=== PATIENT | female | born 1930 | race Caucasian/White ===

== ENCOUNTER 2017-06-22 12:10 | Inpatient (IN) | payer MEDICARE ==
[2017-06-22] MEDS ORDERED: Nitroglycerin 2% Ointment 1 INCH/1 GM Packet ONE (12:31)
[2017-06-22 12:58] LABS: #Basophils 0.1 thou/uL (0.0-0.2); #Eosinphils 0.5 thou/uL (0.0-0.7); #Lymphocytes 2.9 thou/uL (1.20-3.40); #Monocytes 0.8 thou/uL (0.11-0.59); #Neutrophils 7.4 thou/uL (1.40-6.50); %Basophils 0.5 % (0.0-1.0); %Eosinophils 4.5 % (0.0-10.0); %Lymphocytes 24.8 % (21.0-51.0); %Monocytes 6.8 % (0.0-10.0); %Neutrophils 63.4 % (42.0-75.0); Hemoglobin 11.4 g/dL (12.0-16.0); Mean Corpuscular HGB CONC 32.7 g/dL (32.0-36.0); Mean Corpuscular Hemoglobin 29.4 pg (27.0-31.0); Mean Corpuscular Volume 89.7 fl (81.0-99.0); Mean Platelet Volume 8.2 fL (7.4-10.4); Platelet Count 251 thou/uL (130-400); RBC Distribution Width 13.6 % (11.5-14.5); Red Blood Cell (RBC) Count 3.88 mill/uL (4.20-5.40); White Blood Cell (WBC) Count 11.6 thou/uL (4.8-10.8)
--- NOTE | 2017-06-22 13:08 | RAD ---
CHEST ONE VIEW: History: Chest pain. Comparison: 11-07-16 FINDINGS: Lungs are without focal airspace consolidation, pneumothorax, or effusion. Scarring in the right uppe r lobe. Cardiac silhouette and mediastinal contours are similar. No acute osseous abnormality. Multiple media n sternotomy wires. IMPRESSION: No acute intrathoracic abnormality. POS: [facility]
[2017-06-22 13:25] LABS: ALT (SGPT) 9 U/L (8-55); AST (SGOT) 15 U/L (5-34); Albumin 3.7 g/dL (3.4-4.8); Alkaline Phosphatase 73 U/L (40-150); Anion Gap 15 mmol/L (10-20); BUN (Urea Nitrogen) 19 mg/dL (9.8-20.1); Bilirubin, Total 0.3 mg/dL (0.2-1.2); CK (CPK) 25 U/L (29-168); Calc. Creatinine Clearance 0 mL/min (70-130); Calcium 9.8 mg/dL (7.8-10.44); Carbon Dioxide 21 mmol/L (23-31); Chloride 91 mmol/L (98-107); Estimated GFR-MDRD 40; Globulin 3.2 g/dL (2.4-3.5); Glucose 136 mg/dL (83-110); Lipase 47 U/L (8-78); Protein, Total 6.9 g/dL (6.0-8.3); Sodium 122 mmol/L (136-145)
[2017-06-22 13:28] LABS: CKMB 1.2 ng/mL (0-6.6); Troponin I 0.028 ng/mL (< 0.028)
[2017-06-22] MEDS ORDERED: Aspirin 325 MG TAB PO SCH (19:00)
[2017-06-22] MEDS ORDERED: Ondansetron ODT 4 MG TAB PO PRN (19:07)
[2017-06-22] MEDS ORDERED: Bisacodyl 5 MG TAB PO PRN (19:07)
[2017-06-22] MEDS ORDERED: Acetaminophen 650 MG Suppository PR PRN (19:07)
[2017-06-22] MEDS ORDERED: Ondansetron HCl/PF 4 MG/2 ML Vial IVP PRN (19:07)
[2017-06-22] MEDS ORDERED: Acetaminophen 325 MG TAB PO PRN (19:07)
[2017-06-22] MEDS ORDERED: Famotidine 20 MG TAB PO SCH (21:00)
[2017-06-22 21:47] VITALS: BMI 20.4
[2017-06-22] MEDS: Docusate 100 MG CAP PO SCH (21:50)
[2017-06-22] MEDS: Heparin 5,000 UNITS/ML VIAL SC SCH (21:51)
[2017-06-22 23:22] LABS: Bilirubin Negative (Negative); Blood, Urine Small (Negative); Clarity CLOUDY (Clear); Glucose, Urine (Dipstick) Negative (Negative); Leukocyte Large (Negative); Nitrite Negative (Negative); Osmolality, Urine 192 mOsm/kg (300-900); Protein, Urine (Dipstick) 30 mg/dL (Neg-Trace); Specific Gravity, Urine 1.006 (1.002-1.036); Urobilinogen 0.2 mg/dL (0.2-1.0); pH, Urine 7.5 (5.0-9.0)
[2017-06-22 23:24] LABS: Bacteria/HPF 1+ HPF (None Seen); Pathc Cast-AUWi Flag 1.21 (0-2.49); Squamous Epithelial None Seen HPF (0-3)
[2017-06-22 23:35] LABS: Hyaline Casts/LPF 0-3 HYALINE CAST LPF (0-3 Hyaline); RBC/HPF 0-3 HPF (0-3)
[2017-06-22 23:38] LABS: Sodium, Urine 41 mmol/L (Not Available)
[2017-06-22] MEDS ORDERED: Nitroglycerin 2% Ointment 1 INCH/1 GM Packet TOP SCH (23:59)
[2017-06-23 05:49] LABS: #Basophils 0.1 thou/uL (0.0-0.2); #Eosinphils 0.6 thou/uL (0.0-0.7); #Lymphocytes 3.3 thou/uL (1.20-3.40); #Neutrophils 6.4 thou/uL (1.40-6.50); %Basophils 1.1 % (0.0-1.0); %Eosinophils 5.4 % (0.0-10.0); %Lymphocytes 28.8 % (21.0-51.0); %Monocytes 8.4 % (0.0-10.0); %Neutrophils 56.3 % (42.0-75.0); Hemoglobin 10.8 g/dL (12.0-16.0); Mean Corpuscular HGB CONC 32.5 g/dL (32.0-36.0); Mean Corpuscular Hemoglobin 29.2 pg (27.0-31.0); Mean Corpuscular Volume 89.9 fl (81.0-99.0); Mean Platelet Volume 8.5 fL (7.4-10.4); Platelet Count 235 thou/uL (130-400); RBC Distribution Width 13.8 % (11.5-14.5); Red Blood Cell (RBC) Count 3.69 mill/uL (4.20-5.40); White Blood Cell (WBC) Count 11.4 thou/uL (4.8-10.8)
--- NOTE | 2017-06-23 05:50 | HP ---
PRIMARY CARE PHYSICIAN: Benitez Chaudhari MD CHIEF COMPLAINT: Chest pain and weakness. HISTORY OF PRESENT ILLNESS: This is an 87-year-old white female with a recent history in the last fe w months of a fracture of her right femur with a oseas placed in outside hospital. She has had some we akness ever since then and according to her sister seemed to be little confused on and off for quite a few months, but worsening since medications were changed during her last hospitalization. The can ent was able to ambulate well after the fracture. Then, about 3 days prior to admission, the patient became increasingly weak, worsened significantly on the day of admission, almost fell twice with her caregiver. She felt dizzy and complaining of some back pain, and then she had acute onset of left-s ided chest pain, which prompted her going to the emergency room. The patient has a known history of coronary artery disease and a previous CABG 1 year ago. She was given baby aspirin at home and then 324 mg of aspirin by EMS and sublingual nitroglycerin x1. She had some confusion at home, but that r esolved in the emergency room and her chest pain resolved as well. Still feeling weak. PAST MEDICAL HISTORY: The patient does not remember all of her past medical history and her sister jose allred is present does not know it either. Most of her past medical history was taken from the chart, sp ecifically Dr. Chaudhari's H&P from November of this year. 1. Diabetes mellitus type 2. 2. Hypertension. 3. Hypercholesterolemia. 4. Hypothyroidism. 5. Lumbar spinal stenosis. 6. Osteoarthritis. 7. Tuberculosis as a child. PAST SURGICAL HISTORY: 1. Tonsillectomy and adenoidectomy in 1934. 2. Cholecystectomy in 1983. 3. Breast biopsy x3. 4. Back surgery in 1993. 5. D&C in 2000. 6. Laparoscopic-assisted total vaginal hysterectomy and bilateral salpingo-oophorectomy in 2000. 7. Decompressive laminectomy at L2-L3 with microdiskectomy in 2007. 8. Bilateral cataract removal in 2008. 9. CABG in 2015. 10. Oseas placement in right femur in 2018. ALLERGIES: 1. STATINS. 2. TRICOR. 3. CODEINE AND PHOSPHATE. 4. SULFA. CURRENT MEDICATIONS: The patient does not remember her current medications. The sister said that th e EMS took pictures of all of them before bringing them to the hospital. Going off the ER notes, the patient is currently on, 1. Levothyroxine 75 mcg daily. 2. Carvedilol 6.25 mg twice a day. 3. Metformin 500 mg, 2 times a day. 4. Atorvastatin 10 mg daily. 5. Protonix 40 mg daily. 6. Oxybutynin extended release 10 mg daily. 7. Nitrostat 0.4 mg as needed for chest pain. FAMILY HISTORY: Father of kidney disease. Mother from a fall. The patient has some sibli ngs with heart disease. SOCIAL HISTORY: The patient is and lives with her and a live-in ruby on rails engineer. No histo ry of tobacco, alcohol, or illicit drug use. REVIEW OF SYSTEMS: Limited by the patient's mild confusion. Constitutional: No fevers or chills. She has had some weight loss per the sister due to her eating less ever since she had broken her femu r. Eyes: No double vision or blurred vision. ENT: No congestion, drainage or sore throat. Cardio vascular: See HPI. Pulmonary: No coughing, wheezing, or shortness of breath. Gastrointestinal: N o nausea or vomiting. No abdominal pain. She has had some diarrhea per the sister. Genitourinary: No hematuria. The patient reports that it is uncomfortable when she pees ever since she has had to wear a diaper, but no significant changes recently. Musculoskeletal: See HPI. Back pain only. Ski n: No rashes or other lesions she has noted. Neurologic: No numbness, tingling, or focal weakness. PHYSICAL EXAMINATION: VITAL SIGNS: Blood pressure 162/77, pulse 69, respirations 18, O2 sat 94% on room air, temperature 9 8.1. GENERAL: This is a well-developed, well-nourished white female in no apparent distress. HEENT: Eyes, pupils equal, round, and reactive to light. Oropharynx, dry without erythema or exudat e. NECK: Supple. No lymphadenopathy. No thyroid nodules or enlargement. No JVD. HEART: Regular rate and rhythm. No murmurs, rubs, or gallops. LUNGS: Clear to auscultation bilaterally. No wheezes, crackles, or rhonchi. ABDOMEN: Soft, nontender to palpation. Normoactive bowel sounds. No hepatosplenomegaly or other ma sses. EXTREMITIES: No clubbing, cyanosis, or edema. SKIN: No rashes or other lesions noted. NEUROLOGIC: She has intact strength in all extremities and no facial droop. PSYCHIATRIC: The patient is alert. She is oriented to person. She cannot remember the year and she does not know, which hospital she is in, though she does know she is in the hospital and that she ca me here because of chest pain. Her sister reports that the patient typically had normal mental statu s until about the last 6-8 months. She does not know of any sort of diagnosis of dementia, but the p nuvia's mental status has fluctuated since then and sister is convinced this is due to medications. She has a normal affect and no anxiety or depression currently. LABORATORY DATA: White blood cell count of 11.6 with a normal differential, hemoglobin 11.4. Comple te metabolic panel was notable for a sodium of 122, it has never been this low before, usually in the mid to low 130s. In 2016, it did get as low as 126 at one time during her hospitalization for her C ABG, but never below that. Chloride 91, bicarbonate 21. Creatinine is 1.26, which is similar to the previous labs, easily fluctuates between 0.9 and 1.3. Glucose of 136, creatinine kinase 25. The re st of the complete metabolic panel was normal. Cardiac marker set is negative x1. EKG: I did review the EKG done in the emergency room. It does show sinus bradycardia at 58 beats pe r minute with some nonspecific changes, but no evidence of ST elevation or acute ischemic changes. C hest x-ray: I did review the chest x-ray done in the emergency room along with the radiologist's rep ort. It does show no evidence of infiltrate or cardiomegaly, no pulmonary edema, no acute cardiopulm onary process visualized. ASSESSMENT: 1. Chest pain. The patient has a known history of coronary artery disease. Her cardiac marker sets and EKG looks okay at this time. We will go ahead and trend her cardiac markers and consult Cardiol ogy to evaluate her. 2. Hyponatremia. This is likely the source of her fatigue and decreased physical status over the st few days. It may be secondary to patient's decreased food intake with continuing to drink plenty of fluids. We will restrict the patient's free water at this time, but we will not restrict her salt intake and see if the sodium turns around and her physical status improves. We will go ahead and hook ve physical therapy and occupational therapy evaluate her in the hospital. She also has had some pro blems with dysphagia in the past, has previously been on mechanical soft with plenty of gravy and no straws. We will have speech therapy evaluate her while she is in the hospital as well. 3. Alternating level of consciousness. This is fairly chronic now over many months, possibly relate d to patient's medications. Although, there is a possibility of some progressive onset of dementia t hat the sister is trying to explain away with her medication. She does not seem to be on any medicat ions that would cause significant mental status changes at this time. 4. Gastrointestinal prophylaxis. Put the patient on Pepcid in the hospital. 5. Deep venous thrombosis prophylaxis. Put the patient on heparin due to her renal insufficiency. 6. Chronic renal insufficiency. The patient appears the upper limits of her baseline. We will dimitrios tor closely. 7. CODE STATUS: The patient is unable to have a discussion about code status at this time due to he r confusion and sister is not her medical power of workers compensation defense attorney. At this time, she will continue to be F ULL CODE. We will have to re-discuss this in the future with her if he is mentally competent or with her children.
[2017-06-23 06:21] LABS: Anion Gap 12 mmol/L (10-20); BUN (Urea Nitrogen) 18 mg/dL (9.8-20.1); Calc. Creatinine Clearance 25 mL/min (70-130); Calcium 9.7 mg/dL (7.8-10.44); Carbon Dioxide 26 mmol/L (23-31); Chloride 94 mmol/L (98-107); Estimated GFR-MDRD 43; Glucose 82 mg/dL (83-110); Potassium 4.1 mmol/L (3.5-5.1); Sodium 128 mmol/L (136-145)
--- NOTE | 2017-06-23 07:44 | PDOC.PN ---
- Subjective Encounter Start Date: 06/23/17 Encounter Start Time: 07:50 Subjective: No more chest pain. Patient was reportedly confused and didn't know who -: sister was for days until arrived at ER but back to normal. No further -: chest pain. - Objective Resuscitation Status: Resuscitation Status FULL:Full Resuscitation MAR Reviewed: Yes Vital Signs & Weight: Vital Signs (12 hours) Temp Pulse Resp BP Pulse Ox 06/23/17 04:00 97.7 F 59 L 18 160/69 H 94 L 06/23/17 00:32 138/64 06/22/17 20:05 97.7 F 65 18 173/76 H 95 Weight Weight 107 lb 1.6 oz I&O: 06/22/17 06/23/17 06/24/17 06:59 06:59 06:59 Intake Total 150 Output Total 200 Balance -50 Result Diagrams: 06/23/17 04:35 06/23/17 04:35 Phys Exam - Physical Examination Constitutional: NAD HEENT: moist MMs Respiratory: no wheezing, no rales, no rhonchi Cardiovascular: RRR, no significant murmur Gastrointestinal: soft, positive bowel sounds Neurological: non-focal, moves all 4 limbs Psychiatric: normal affect Dx/Plan (1) Hyponatremia Code(s): E87.1 - HYPO-OSMOLALITY AND HYPONATREMIA Status: Acute Comment: improving with fluid restriction (2) Chest pain Code(s): R07.9 - CHEST PAIN, UNSPECIFIED Status: Resolved Comment: cardiology consulted, only one CM ordered in ER and neg, will recheck this AM (3) Encephalopathy Code(s): G93.40 - ENCEPHALOPATHY, UNSPECIFIED Status: Acute Comment: Suspect patient may be having onset of dementia. No new medications on her list that commonly cause confusion. - Plan cont current plan of care, PT/OT * . - Discharge Day Encounter end time: 08:20
[2017-06-23 08:55] LABS: CKMB 1.3 ng/mL (0-6.6); Troponin I 0.031 ng/mL (< 0.028)
[2017-06-23] MEDS: Levothyroxine Sodium 75 MCG TAB PO SCH (09:53)
[2017-06-23] MEDS: Heparin 5,000 UNITS/ML VIAL SC SCH ×3 (10:03→21:04)
[2017-06-23] MEDS: Docusate 100 MG CAP PO SCH ×2 (10:03→21:04)
--- NOTE | 2017-06-23 20:07 | CON ---
DATE OF CONSULTATION: 06/23/2017 REASON FOR CONSULTATION: Chest pain. PRIMARY CATHETER FINISHER AND INSPECTOR: Dr. Michael Torres. HISTORY OF PRESENT ILLNESS: Ms. Polo is a very pleasant 87-year-old woman who recently presented wi th chest pain. During my visit with Ms. Polo, she does seem somewhat confused. She did not remembe r having chest pain, although after being reminded by her granddaughter does admit to having a pain. Her symptoms are vague. She cannot quantify the intensity, severity, or duration. She does have a history of CAD status post bypass surgery in the past. PAST MEDICAL HISTORY: Diabetes mellitus, hypertension, hyperlipidemia, CAD status post bypass surger y, spinal stenosis, osteoarthritis. PAST SURGICAL HISTORY: Tonsillectomy, cholecystectomy, breast biopsy, back surgery, laminectomy, cat aract removal. ALLERGIES: STATIN THERAPY, TRICOR, CODEINE, SULFA. HOME MEDICATIONS: Include levothyroxine, carvedilol, metformin, atorvastatin and Protonix. FAMILY HISTORY: Negative for CAD. SOCIAL HISTORY: No current tobacco or alcohol use. REVIEW OF SYSTEMS: Ten point review of systems reviewed and as above, otherwise negative. PHYSICAL EXAMINATION: GENERAL: She is confused. VITAL SIGNS: Blood pressure 192/84, pulse 74, temperature 98. NEUROLOGIC: The patient is alert and oriented times 3 with no focal neurologic deficits. HEENT: Sclerae without icterus. Mouth has moist mucous membranes with normal pallor. NECK: No JVD. Carotid upstroke brisk. No bruits bilaterally. LUNGS: Clear to auscultation with unlabored respirations. BACK: No scoliosis or kyphosis. CARDIAC: Regular rate and rhythm with normal S1 and S2. No S3 or S4 noted. No significant rubs, mu rmurs, thrills, or gallops noted throughout the precordium. PMI is not displaced. There is no anastasiya ternal heave. ABDOMEN: Soft, nontender, nondistended. No peritoneal signs present. No hepatosplenomegaly. No ab normal striae. EXTREMITIES: 2+ femoral and 2+ dorsalis pedis pulses. No cyanosis, clubbing, or edema. SKIN: No gross abnormalities. PERTINENT LABORATORY DATA: Hemoglobin 10.8, creatinine 1.19 with a GFR of 43. Peak troponin is 0.03 1. IMPRESSION: 1. Chest pain. 2. Coronary artery disease. 3. Status post bypass surgery. RECOMMENDATIONS: 1. Continue aspirin in addition to atorvastatin. 2. Add Norvasc 5 mg 1 p.o. now. 3. Add Coreg 3.125 mg p.o. b.i.d. 4. P.r.n. clonidine. 5. I did discuss conservative versus aggressive approach with Ms. Polo as well as her granddaughter . The granddaughter does agree to a more conservative approach including medical therapy. Further r ecommendations for Dr. Michael Torres in a.m.
[2017-06-23] MEDS: Amlodipine 5 MG TAB PO SCH (20:59)
[2017-06-23] MEDS: Carvedilol 6.25 MG TAB PO SCH (21:00)
[2017-06-23] MEDS: Atorvastatin Calcium 10 MG TAB PO SCH (21:04)
[2017-06-23] MEDS: Oxybutynin ER 5 MG TAB PO SCH (21:05)
[2017-06-24 05:24] LABS: #Basophils 0.1 thou/uL (0.0-0.2); #Eosinphils 0.6 thou/uL (0.0-0.7); #Lymphocytes 3.4 thou/uL (1.20-3.40); #Monocytes 0.8 thou/uL (0.11-0.59); #Neutrophils 5.7 thou/uL (1.40-6.50); %Eosinophils 5.3 % (0.0-10.0); %Lymphocytes 32.1 % (21.0-51.0); %Monocytes 7.4 % (0.0-10.0); %Neutrophils 54.1 % (42.0-75.0); Hemoglobin 11.2 g/dL (12.0-16.0); Mean Corpuscular HGB CONC 32.5 g/dL (32.0-36.0); Mean Corpuscular Volume 89.4 fl (81.0-99.0); Mean Platelet Volume 8.1 fL (7.4-10.4); Platelet Count 261 thou/uL (130-400); RBC Distribution Width 13.7 % (11.5-14.5); Red Blood Cell (RBC) Count 3.84 mill/uL (4.20-5.40); White Blood Cell (WBC) Count 10.5 thou/uL (4.8-10.8)
[2017-06-24 05:51] LABS: Anion Gap 10 mmol/L (10-20); BUN (Urea Nitrogen) 17 mg/dL (9.8-20.1); Calc. Creatinine Clearance 24 mL/min (70-130); Calcium 9.8 mg/dL (7.8-10.44); Carbon Dioxide 27 mmol/L (23-31); Chloride 95 mmol/L (98-107); Estimated GFR-MDRD 39; Glucose 109 mg/dL (83-110); Sodium 128 mmol/L (136-145)
[2017-06-24] MEDS ORDERED: FLU VACC TS2017-18 (>65YR) 0.5 ML SYRINGE IM ONE (06:00)
[2017-06-24] MEDS: Levothyroxine Sodium 75 MCG TAB PO SCH (08:27)
[2017-06-24] MEDS: Carvedilol 6.25 MG TAB PO SCH ×2 (08:27→21:30)
[2017-06-24] MEDS: Docusate 100 MG CAP PO SCH ×2 (08:28→21:31)
[2017-06-24] MEDS: Heparin 5,000 UNITS/ML VIAL SC SCH ×3 (08:28→21:29)
--- NOTE | 2017-06-24 11:09 | PDOC.PN ---
- Subjective Encounter Start Date: 06/24/17 Encounter Start Time: 11:00 Subjective: Patient still frail and mildly confused. Granddaughter her and states -: patient's mental status has been like this since CABG, and worse since -: femur fracture. No complaints of pain. - Objective Resuscitation Status: Resuscitation Status FULL:Full Resuscitation MAR Reviewed: Yes Vital Signs & Weight: Vital Signs (12 hours) Temp Pulse Resp BP BP Pulse Ox 06/24/17 08:27 165/70 H 06/24/17 07:36 97.7 F 67 17 165/70 H 96 06/24/17 04:32 95 06/24/17 04:00 97.6 F 62 20 132/60 95 06/24/17 00:20 94 L 06/23/17 23:56 97.5 F L 69 20 160/70 H 94 L Weight Weight 108 lb 3.2 oz I&O: 06/23/17 06/24/17 06/25/17 06:59 06:59 06:59 Intake Total 150 740 Output Total 200 Balance -50 740 Result Diagrams: 06/24/17 04:27 06/24/17 04:27 Phys Exam - Physical Examination Constitutional: NAD HEENT: moist MMs Respiratory: no wheezing, no rales, no rhonchi Cardiovascular: RRR Gastrointestinal: soft, positive bowel sounds Neurological: non-focal, moves all 4 limbs Deviation from normal: alert, slow responses, a bit confused Dx/Plan (1) Hyponatremia Code(s): E87.1 - HYPO-OSMOLALITY AND HYPONATREMIA Status: Acute Comment: improving with fluid restriction (2) Chest pain Code(s): R07.9 - CHEST PAIN, UNSPECIFIED Status: Resolved Comment: Cardiology consulted, medical management (3) Encephalopathy Code(s): G93.40 - ENCEPHALOPATHY, UNSPECIFIED Status: Acute Comment: Suspect patient may be having onset of dementia. No new medications on her list that commonly cause confusion. - Plan cont current plan of care, PT/OT, DVT proph w/lovenox, DVT proph w/SCDs Will need placement after stabilized and cleared by cardiology. * . - Discharge Day Encounter end time: 11:30
[2017-06-24] MEDS ORDERED: Aspirin 81 mg Enteric Coated Tablet PO SCH (12:45)
[2017-06-24] MEDS: Atorvastatin Calcium 10 MG TAB PO SCH (21:29)
[2017-06-24] MEDS: Oxybutynin ER 5 MG TAB PO SCH (21:29)
[2017-06-24] MEDS: Amlodipine 5 MG TAB PO SCH (21:30)
[2017-06-25] MEDS: Levothyroxine Sodium 75 MCG TAB PO SCH (06:07)
[2017-06-25] MEDS: Docusate 100 MG CAP PO SCH ×2 (08:49→20:54)
[2017-06-25] MEDS: Carvedilol 6.25 MG TAB PO SCH ×2 (08:49→20:54)
[2017-06-25] MEDS: Heparin 5,000 UNITS/ML VIAL SC SCH ×3 (08:50→20:54)
[2017-06-25] MEDS: Aspirin 81 mg Enteric Coated Tablet PO SCH (08:50)
--- NOTE | 2017-06-25 12:34 | PDOC.PN ---
- Subjective Encounter Start Date: 06/25/17 Encounter Start Time: 12:33 Patient seen at bedside. Complains of dysuria, no further chest pain. - Objective Resuscitation Status: Resuscitation Status FULL:Full Resuscitation MAR Reviewed: Yes Vital Signs & Weight: Vital Signs (12 hours) Temp Pulse Resp BP Pulse Ox 06/25/17 08:00 97.7 F 60 18 149/65 H 94 L 06/25/17 04:23 95 06/25/17 04:00 97.9 F 57 L 14 161/70 H 95 Weight Weight 108 lb 1.6 oz I&O: 06/24/17 06/25/17 06/26/17 06:59 06:59 06:59 Intake Total 740 360 Balance 740 360 Result Diagrams: 06/24/17 04:27 06/24/17 04:27 Phys Exam - Physical Examination Constitutional: NAD HEENT: moist MMs Neck: no JVD Respiratory: clear to auscultation bilateral Cardiovascular: RRR Gastrointestinal: soft mild suprapubic tenderness Musculoskeletal: no edema Neurological: normal sensation Psychiatric: A&O x 3 Dx/Plan (1) UTI (urinary tract infection) Status: Acute (2) Hyponatremia Code(s): E87.1 - HYPO-OSMOLALITY AND HYPONATREMIA Status: Acute Comment: improving with fluid restriction (3) Chest pain Code(s): R07.9 - CHEST PAIN, UNSPECIFIED Status: Resolved Comment: Cardiology consulted, medical management (4) Leucocytosis Code(s): D72.829 - ELEVATED WHITE BLOOD CELL COUNT, UNSPECIFIED Status: Acute - Plan cont current plan of care, continue antibiotics, PT/OT, social media editor, DVT proph w/heparin * Continue with conservative management for chest pain. * Start Levaquin for UTI * Daily Labs * CM for disposition assistance
[2017-06-25] MEDS: Amlodipine 5 MG TAB PO SCH (20:54)
[2017-06-25] MEDS: Atorvastatin Calcium 10 MG TAB PO SCH (20:54)
[2017-06-25] MEDS: Oxybutynin ER 5 MG TAB PO SCH (21:27)
[2017-06-26 05:22] LABS: ALT (SGPT) 8 U/L (8-55); AST (SGOT) 14 U/L (5-34); Albumin 3.8 g/dL (3.4-4.8); Alkaline Phosphatase 76 U/L (40-150); Anion Gap 12 mmol/L (10-20); BUN (Urea Nitrogen) 16 mg/dL (9.8-20.1); Bilirubin, Total 0.3 mg/dL (0.2-1.2); Calc. Creatinine Clearance 24 mL/min (70-130); Calcium 9.7 mg/dL (7.8-10.44); Carbon Dioxide 26 mmol/L (23-31); Chloride 96 mmol/L (98-107); Estimated GFR-MDRD 40; Globulin 3.2 g/dL (2.4-3.5); Glucose 116 mg/dL (83-110); Potassium 3.8 mmol/L (3.5-5.1); Sodium 130 mmol/L (136-145)
[2017-06-26] MEDS: Levothyroxine Sodium 75 MCG TAB PO SCH (06:22)
[2017-06-26] MEDS: Heparin 5,000 UNITS/ML VIAL SC SCH ×3 (09:27→21:48)
[2017-06-26] MEDS: Aspirin 81 mg Enteric Coated Tablet PO SCH (09:27)
[2017-06-26] MEDS: Carvedilol 6.25 MG TAB PO SCH ×2 (09:27→21:48)
[2017-06-26] MEDS: Docusate 100 MG CAP PO SCH ×2 (09:27→21:48)
--- NOTE | 2017-06-26 16:19 | PDOC.PN ---
- Subjective Encounter Start Date: 06/26/17 Encounter Start Time: 16:15 Subjective: feels good. no new complaints - Objective Resuscitation Status: Resuscitation Status FULL:Full Resuscitation MAR Reviewed: Yes Vital Signs & Weight: Vital Signs (12 hours) Temp Pulse Pulse Resp BP BP BP 06/26/17 15:09 97.1 F L 06/26/17 13:00 99.1 F 63 20 172/72 H 06/26/17 11:23 70 151/68 H 06/26/17 09:30 97.3 F L 65 16 06/26/17 09:27 161/67 H 06/26/17 09:15 97.3 F L 65 16 161/67 H Pulse Ox 06/26/17 15:09 06/26/17 13:00 95 06/26/17 11:23 06/26/17 09:30 95 06/26/17 09:27 06/26/17 09:15 95 Weight Weight 108 lb 9.6 oz I&O: 06/25/17 06/26/17 06/27/17 06:59 06:59 06:59 Intake Total 360 960 Balance 360 960 Result Diagrams: 06/24/17 04:27 06/26/17 04:12 Additional Labs: Microbiology 06/23/17 17:40 Urine clean catch Urine Culture - Final Enterobacter cloacae complex Laboratory Tests 06/22/17 06/22/17 06/22/17 12:47 12:47 23:09 Sodium 122 L Creatinine 1.26 H Troponin I 0.028 Urine Osmolality 192 L Urine Sodium 41 06/23/17 06/23/17 06/24/17 04:35 04:35 04:27 Sodium 128 L 128 L Creatinine 1.19 H 1.28 H Troponin I 0.031 H Urine Osmolality Urine Sodium 06/26/17 04:12 Sodium 130 L Creatinine 1.27 H Troponin I Urine Osmolality Urine Sodium Phys Exam - Physical Examination Constitutional: NAD HEENT: PERRLA, moist MMs, sclera anicteric, TM's clear, oral pharynx no lesions , 2+ tonsils Neck: no nodes, no JVD, supple, full ROM Respiratory: no wheezing, no rales, no rhonchi, clear to auscultation bilateral Cardiovascular: RRR, no significant murmur, no rub, gallop Gastrointestinal: soft, non-tender, no distention, positive bowel sounds Musculoskeletal: no edema, pulses present Neurological: non-focal, normal sensation, moves all 4 limbs Psychiatric: normal affect, A&O x 3 Skin: no rash Dx/Plan (1) UTI (urinary tract infection) Status: Acute (2) ROCKY (acute kidney injury) Code(s): N17.9 - ACUTE KIDNEY FAILURE, UNSPECIFIED Status: Acute (3) Hyponatremia Code(s): E87.1 - HYPO-OSMOLALITY AND HYPONATREMIA Status: Acute Comment: improving with fluid restriction (4) HTN (hypertension) Code(s): I10 - ESSENTIAL (PRIMARY) HYPERTENSION Status: Chronic Qualifiers: Hypertension type: essential hypertension Qualified Code(s): I10 - Essential (primary) hypertension - Plan continue antibiotics, PT/OT, certified social workers in health care, DVT proph w/SCDs recheck urine as diaper had discolored urine,though no symptoms -: cont ABx for enterobacter in urine based on sensitivity. -: Increase coreg to home dose as BP still high. -: sodium improved w free water restriction. -: add NS as cr still on high side.recheck labs in am * .restarted on ASA yesterday by cardiology.will reduce heparin to BID unless hematuria ruled out. * hemodynamically stable. Review of Systems - Review of Systems Constitutional: negative: fever, chills, sweats, weakness, malaise, other ENT: negative: Ear Pain, Ear Discharge, Nose Pain, Nose Discharge, Nose Congestion, Mouth Pain, Mouth Swelling, Throat Pain, Throat Swelling, Other Respiratory: negative: Cough, Dry, Shortness of Breath, Hemoptysis, SOB with Excertion, Pleuritic Pain, Sputum, Wheezing Cardiovascular: negative: chest pain, palpitations, orthopnea, paroxysmal nocturnal dyspnea, edema, light headedness, other Gastrointestinal: negative: Nausea, Vomiting, Abdominal Pain, Diarrhea, Constipation, Melena, Hematochezia, Other Genitourinary: negative: Dysuria, Frequency, Incontinence, Hematuria, Retention , Other Musculoskeletal: negative: Neck Pain, Shoulder Pain, Arm Pain, Back Pain, Hand Pain, Leg Pain, Foot Pain, Other - Medications/Allergies Allergies/Adverse Reactions: Allergies Allergy/AdvReac Type Severity Reaction Status Date / Time codeine Allergy Verified 01/30/16 09:18 fenofibrate nanocrystallized Allergy Verified 01/30/16 09:18 [From Tricor] fenofibrate,micronized Allergy Verified 01/30/16 09:18 [From Tricor] ketoprofen Allergy Verified 01/30/16 09:18 Sulfa (Sulfonamide Allergy Verified 01/30/16 09:18 Antibiotics) Tetanus Vaccines and Toxoid Allergy anaphylactic Verified 01/30/16 09:14 [Tetanus Vaccines & Toxoid] shock Medications: Current Medications Acetaminophen (Tylenol) 650 mg PO Q4H PRN PRN Reason: Headache/Fever or Pain Last Admin: 06/25/17 20:55 Dose: 650 mg Acetaminophen (Tylenol) 650 mg NE Q4H PRN PRN Reason: Headache/Fever or Pain Amlodipine Besylate (Norvasc) 5 mg PO 2100 [facility] Last Admin: 06/25/17 20:54 Dose: 5 mg Aspirin (Ecotrin) 81 mg PO DAILY [facility] Last Admin: 06/26/17 09:27 Dose: 81 mg Atorvastatin Calcium (Lipitor) 10 mg PO HS [facility] Last Admin: 06/25/17 20:54 Dose: 10 mg Bisacodyl (Dulcolax) 10 mg PO DAILYPRN PRN PRN Reason: Constipation Carvedilol (Coreg) 6.25 mg PO BID [facility] Docusate Sodium (Colace) 100 mg PO BID [facility] Last Admin: 06/26/17 09:27 Dose: 100 mg Heparin Sodium (Porcine) (Heparin) 5,000 units SC BID [facility] Levofloxacin 750 mg/ Device 150 mls @ 100 mls/hr IVPB 0900 [facility] Last Admin: 06/26/17 09:28 Dose: 150 mls Levothyroxine Sodium (Synthroid) 75 mcg PO 0600 [facility] Last Admin: 06/26/17 06:22 Dose: 75 mcg Ondansetron HCl (Zofran Odt) 4 mg PO Q6H PRN PRN Reason: Nausea/Vomiting Ondansetron HCl (Zofran) 4 mg IVP Q6H PRN PRN Reason: Nausea/Vomiting Oxybutynin Chloride (Ditropan Xl) 10 mg PO HS [facility] Last Admin: 06/25/17 21:27 Dose: Not Given Pantoprazole Sodium (Protonix) 40 mg PO DAILY [facility] Last Admin: 06/26/17 09:28 Dose: 40 mg Sodium Chloride (Flush - Normal Saline) 10 ml IVF Q12HR [facility] Last Admin: 06/26/17 09:29 Dose: 10 ml Sodium Chloride (Flush - Normal Saline) 10 ml IVF PRN PRN PRN Reason: Saline Flush
[2017-06-26 17:45] LABS: Bilirubin Negative (Negative); Blood, Urine Small (Negative); Clarity CLOUDY (Clear); Glucose, Urine (Dipstick) Negative (Negative); Leukocyte Large (Negative); Nitrite Negative (Negative); Protein, Urine (Dipstick) 30 mg/dL (Neg-Trace); Urobilinogen 0.2 mg/dL (0.2-1.0); pH, Urine 7.5 (5.0-9.0)
[2017-06-26 17:47] LABS: Bacteria/HPF Rare-Few HPF (None Seen); Hyaline Casts/LPF 0-3 HYALINE CAST LPF (0-3 Hyaline); Pathc Cast-AUWi Flag 0.27 (0-2.49); Squamous Epithelial None Seen HPF (0-3)
[2017-06-26] MEDS ORDERED: Heparin 5,000 UNITS/ML VIAL SC SCH (21:00)
[2017-06-26] MEDS: Sodium Chloride 0.9% 1,000 ML IV SCH (21:39)
[2017-06-26] MEDS: Amlodipine 5 MG TAB PO SCH (21:48)
[2017-06-26] MEDS: Atorvastatin Calcium 10 MG TAB PO SCH (21:48)
[2017-06-26] MEDS: Oxybutynin ER 5 MG TAB PO SCH (21:49)
[2017-06-27 05:26] LABS: #Eosinphils 0.2 thou/uL (0.0-0.7); #Lymphocytes 2.6 thou/uL (1.20-3.40); #Monocytes 1.1 thou/uL (0.11-0.59); #Neutrophils 5.1 thou/uL (1.40-6.50); %Basophils 0.3 % (0.0-1.0); %Eosinophils 2.4 % (0.0-10.0); %Lymphocytes 28.7 % (21.0-51.0); %Monocytes 12.5 % (0.0-10.0); Hemoglobin 12.1 g/dL (12.0-16.0); Mean Corpuscular Hemoglobin 29.7 pg (27.0-31.0); Mean Platelet Volume 9.6 fL (7.4-10.4); Platelet Count 194 thou/uL (130-400); RBC Distribution Width 13.7 % (11.5-14.5); Red Blood Cell (RBC) Count 4.08 mill/uL (4.20-5.40); White Blood Cell (WBC) Count 9.1 thou/uL (4.8-10.8)
[2017-06-27 05:41] LABS: Anion Gap 14 mmol/L (10-20); BUN (Urea Nitrogen) 16 mg/dL (9.8-20.1); Calc. Creatinine Clearance 25 mL/min (70-130); Calcium 9.4 mg/dL (7.8-10.44); Carbon Dioxide 21 mmol/L (23-31); Chloride 97 mmol/L (98-107); Estimated GFR-MDRD 42; Glucose 103 mg/dL (83-110); Potassium 3.8 mmol/L (3.5-5.1); Sodium 128 mmol/L (136-145)
[2017-06-27] MEDS: Levothyroxine Sodium 75 MCG TAB PO SCH (06:48)
[2017-06-27] MEDS: Carvedilol 6.25 MG TAB PO SCH (08:00)
[2017-06-27] MEDS: Aspirin 81 mg Enteric Coated Tablet PO SCH (08:00)
[2017-06-27] MEDS: Docusate 100 MG CAP PO SCH (08:00)
[2017-06-27] MEDS: Heparin 5,000 UNITS/ML VIAL SC SCH (08:00)
[2017-06-27] MEDS: Sodium Chloride 0.9% 1,000 ML IV SCH (08:01)
[2017-06-27 11:26] VITALS: TEMP 98.3
[2017-06-27] MEDS ORDERED: cloNIDine 0.1 MG TAB PO SCH (11:57)
[2017-06-27 12:45] VITALS: BP 146/83
--- NOTE | 2017-06-27 23:38 | DIS ---
DATE OF ADMISSION: 06/22/2017 DATE OF DISCHARGE: 06/27/2017 CONDITION AT THE TIME OF DISCHARGE: Stable and improved. PRIMARY CARE PHYSICIAN: Dr. Benitez Chaudhari. DISCHARGE DISPOSITION: Home with home health. DISCHARGE DIAGNOSES: 1. Urinary tract infection. 2. Acute kidney insufficiency. 3. Hyponatremia due to poor p.o. intake. 4. Hypertension. 5. Coronary artery disease with CABG one year ago. DISCHARGE MEDICATIONS: Levofloxacin 500 mg p.o. daily for 5 more days, amlodipine 5 mg p.o. daily, F lorastor 250 mg p.o. daily, sodium chloride 2 grams p.o. b.i.d. for 3 days, Coreg 6.25 mg p.o. b.i.d. , Synthroid 75 mcg daily, metformin 500 mg p.o. b.i.d., atorvastatin 10 mg daily, meloxicam 15 mg p.o . daily, Protonix 40 mg daily, and oxybutynin 10 mg p.o. daily. INHOUSE CONSULTATION: Cardiology, Dr. Winters. PROCEDURES DONE: None. HISTORY OF PRESENTING ILLNESS: Ms. Polo is a pleasant 87-year-old female with past medical history of diabetes, hypertension, dyslipidemia, chronic kidney disease, and hypothyroidism who was brought i [facility] the emergency room by family for complaints of chest pain. Upon presentation, she was hemodynami santiago stable with a blood pressure of 162/77, pulse of 69 and oxygen saturation 94% on room air. Her initial examination was rather unremarkable. Her EKG showed sinus bradycardia otherwise no acute ch anges. She was found to have significant hyponatremia with a sodium of 122 and mild acute kidney ins ufficiency with a creatinine of 1.21. She was admitted for further evaluation of chest pain and hypo natremia, and some confusion on presentation, which quickly cleared. Please see admission history an d physical for further details. HOSPITAL COURSE: The patient was started on IV antibiotics as urinalysis showed positive bacteria. Urine was sent for culture. Her urine culture came back positive for Enterobacter cloacae, which was sensitive to levofloxacin. It was resistant to cefoxitin and ceftriaxone. The patient had clinical improvement in her symptoms every day. Her white count improved and she was hemodynamically stable. With regards to her hyponatremia, it got better with some fluid restriction, but more or less it selvin ined in the region of 128. Her kidney insufficiency, improved up to her baseline which is estimated GFR of 40 or 42. She was found to have chronic hyponatremia on chart review. Nephrology was consult ed and Dr. Fair saw the patient. He recommended adding salt tablets to her diet for the next 3 da ys with outpatient followup. This was relayed to the patient and her family who verbalized understan ding. Rehabilitation option was provided to the family, but they declined it. They already have home healt h and wanted to take the patient home. On the day of discharge, she was seen and examined and is stable and eager to go home and is clinical ly better. PHYSICAL EXAMINATION: VITAL SIGNS: Temperature 98.3, pulse of 77, respirations 16, saturating 95% on room air, blood press ure 146/83. GENERAL: No acute distress, lying comfortably in bed. Awake, alert and oriented x3. CHEST: Clear to auscultation bilaterally. Rate and rhythm is regular without any murmur, rubs or ga llops. LABORATORY DATA: Sodium 128, creatinine 1.21. WBC is 9.1, which was 11.6 on presentation, hemoglobi n 12.1, platelet count of 194. The patient was started on amlodipine for uncontrolled hypertension, which further needs to be titrat ed. The patient will follow up with PCP with regards to that. Discharge plan was discussed with the patient and her family and they verbalized understanding. Total time spent 33 minutes.
--- NOTE | 2017-06-28 03:36 | CON ---
DATE OF CONSULTATION: 06/27/2017 CONSULTING PHYSICIAN: Dr. Melo REASON FOR CONSULTATION: Hyponatremia. REASON FOR ADMISSION: Weakness. HISTORY OF PRESENT ILLNESS: This is an 87-year-old female with history of right femoral fracture, diabetes, hypertension, hyperlipidemia, hypothyroidism, who came to the hospital with weakness and found to have sodium level being low. Her initial sodium on admission was 122 and improved to 128, and stayed at about 122. The patient has a chronic hyponatremia with range from 127-132. The patient is asymptomatic and wants to go home. No fever or chills. No nausea or vomiting. PAST MEDICAL HISTORY: Type 2 diabetes, hypertension, hyperlipidemia, hypothyroidism, lumbar spinal stenosis, osteoarthritis, tuberculosis. PAST SURGICAL HISTORY: Tonsillectomy, cholecystectomy, breast biopsy, back surgery, D and C, hysterectomy, laminectomy, cataract surgery, CABG and valve placement in the right femoral artery. HOME MEDICATIONS: Levothyroxine, carvedilol, metformin, atorvastatin, Protonix , oxybutynin, Nitrostat. ALLERGIES: STATINS, TRICOR, CODEINE, PHOSPHATE and SULFA. SOCIAL HISTORY: No smoking, alcohol or illicit drug use. FAMILY HISTORY: Dad had kidney disease. REVIEW OF SYSTEMS: The following complete review of systems was negative, unless otherwise mentioned in the HPI or below: Constitutional: Weight loss or gain, ability to conduct usual activities. Skin: Rash, itching. Eyes: Double vision, pain. ENT/Mouth: Nose bleeding, neck stiffness, pain, tenderness. Cardiovascular: Palpitations, dyspnea on exertion, orthopnea. Respiratory: Shortness of breath, wheezing, cough, hemoptysis, fever or night sweats. Gastrointestinal: Poor appetite, abdominal pain, heartburn, nausea, vomiting, constipation, or diarrhea. Genitourinary: Urgency, frequency, dysuria, nocturia. Musculoskeletal: Pain, swelling. Neurologic/Psychiatric: Anxiety, depression. Allergy/Immunologic: Skin rash, bleeding tendency. PHYSICAL EXAMINATION: GENERAL: This is a thin-built female in no apparent distress. VITAL SIGNS: Temperature 98.3, pulse 77, respirations 18, blood pressure 146/ 83. Musculoskeletal : No tenderness, No edema HEENT: Atraumatic normocephalic Neck: Supple Cardiovascular: S1S2 heard, Rate and rhythm regular Respiratory: Clear to auscultation Gastrointestinal: Abdomen is soft Dermatologic : No skin rash Neurologic: Alert and awake and oriented X3 No focal neurologic deficits. Moving all the extremities. Psychiatric: Mood and affect normal LABORATORY AND X-RAY FINDINGS: Potassium is 3.8, BUN 16, creatinine was 1.21. ASSESSMENT AND PLAN: 1. Hyponatremia, seems to be chronic in nature and okay to discharge home. Continue fluid restriction. Patient was advised to follow up with the clinic in 1 week. Most likely from tea and toast diet. Patient needs to increase protein intake in her diet. 2. Hyperchloremia. 3. Acidosis. 4. Edema. 5. Hypertension, stable. 6. Mild anemia. Okay to discharge home. The patient needs to increase protein intake in the diet and okay with discharging home on salt tablets for a couple of days. I will follow. Thank you for the consultation. JOANA
--- NOTE | 2017-07-02 10:41 | PQF ---
STEVEN WILKS, MIGUEL BOATENG MD [id number] CLINICAL DOCUMENTATION CLARIFICATION FORM: POST DISCHARGE DATE: 07/02/17 ATTN: Dr Dill Please exercise your independent, professional judgment in responding to the clarification form. Clinical indicators are provided on the bottom of this form for your review PLEASE STATE WHETHER ENCEPHALOPATHY WAS RULED IN OR OUT AND THE CAUSE. THANK YOU. Please check appropriate box(s): [ X ] Encephalopathy: Type: [ ] Acute [ ] Subacute [ X ] Chronic Etiology: [ ] Hypertensive [ ] Metabolic [ ] Toxic [ ] Hepatic with Coma [ ] Hepatic w/o Coma [ ] Hypoxic [ ] Septic [ ] Drug induced: [ ] Unspecified [ ] in the setting of underlying dementia [ ] Other (please specify) [ ] Transient Alteration of Awareness [ ] Other diagnosis [ ] Unable to determine In addition, please specify: Present on Admission (POA): [ X ] Yes [ ] No [ ] Unable to determine For continuity of documentation, please document condition throughout progress notes and discharge summary. Thank You. CLINICAL INDICATORS - SIGNS / SYMPTOMS / LABS Altered mental status / confusion improving once cause is corrected (acute) Metabolic / electrolyte abnormality RISK FACTORS Electrolyte imbalance TREATMENTS: Cause is corrected encephalopathy resolves Encephalopathy documented by Dr. Dill on 06/23 and 06/24 (hospitalist PN) however Dr. Dill further states suspect patient may have onset of dementia and then in the discharge summary by Lorie, there is no mention of encephalopathy. He does state confusion on admit quickly cleared. (This form is maintained as a part of the permanent medical record) 2014 [email or web address]. All Rights Reserved [email or web address] [phone] JOANA
--- NOTE | 2017-07-03 15:26 | EKG ---
Test Reason : Blood Pressure : / mmHG Vent. Rate : 058 BPM Atrial Rate : 058 BPM P-R Int : 156 ms QRS Dur : 090 ms QT Int : 450 ms P-R-T Axes : 050 072 096 degrees QTc Int : 441 ms Sinus bradycardia Lateral infarct , age undetermined Inferior-posterior infarct , age undetermined Abnormal ECG Confirmed by JERAMIE CHANG, TANIA Acharya ([id number]), editor managing newspaper DUC MICHEL ([id number]) on 07/03/2017 3:25:58 PM Referred By: Confirmed By:TANIA BOBO MD
== END 2017-06-27 13:22 | disposition home health service (06) | DRG 640 ==
LOC: ERS 12:10 → 2NO 13:45 → ERS 18:14 → T4-A 06-26 18:21
PROVIDERS: ADMIT Emergency Medicine; ATTEND Emergency Medicine
DX: E87.1 Hypo-osmolality and hyponatremia (principal); G93.40 Encephalopathy, unspecified; N17.9 Acute kidney failure, unspecified; N39.0 Urinary tract infection, site not specified; E87.2 Acidosis; E11.9 Type 2 diabetes mellitus without complications; B96.89 Other specified bacterial agents as the cause of diseases classified elsewhere; D64.9 Anemia, unspecified; R07.9 Chest pain, unspecified; I25.10 Atherosclerotic heart disease of native coronary artery without angina pectoris; E87.8 Other disorders of electrolyte and fluid balance, not elsewhere classified; E03.9 Hypothyroidism, unspecified; E78.00 Pure hypercholesterolemia, unspecified; I10 Essential (primary) hypertension; M48.061 Spinal stenosis, lumbar region without neurogenic claudication; M19.90 Unspecified osteoarthritis, unspecified site; Z86.11 Personal history of tuberculosis; Z88.5 Allergy status to narcotic agent; Z88.2 Allergy status to sulfonamides; Z88.8 Allergy status to other drugs, medicaments and biological substances; Z79.84 Long term (current) use of oral hypoglycemic drugs; Z95.1 Presence of aortocoronary bypass graft
CPT/HCPCS: 36415; 71010; 80048; 80053; 81003; 81015; 82553; 83690; 83930; 83935; 84300; 84484; 85025; 87077; 87086; 87186; 93005; A4216; A4353; G8978-GP-CM; G8979-GP-CK; G8987-GO-CK; G8988-GO-CJ; G8996-GN-CI; G8997-GN-CI; J1644; J1956